=== PATIENT | female | born 1990 | race Caucasian/White ===

== ENCOUNTER 2016-03-20 20:32 | Emergency (ER) | payer OTHER ==
[~2016-03-20] VITALS: Ht 162.6 cm; Wt 67.4 kg
[~2016-03-20 20:32] MED LIST: CTF50 PO; HYDR-5688 PO; IBUP-1427 PO; PROP10TA7 PO
[2016-03-20 20:37] VITALS: TEMP 36.3; Ht 162.6 cm; Wt 67.4 kg
[2016-03-20] MEDS ORDERED: RIBO100T9 PO (20:56)
[2016-03-20] MEDS ORDERED: LMC25 PO (20:58)
--- NOTE | 2016-03-20 21:39 | EMERGENCY ROOM VISIT NOTE ---
History First contact with patient: 21:01 Chief Complaint: HEADACHE Stated Complaint: LIGHT HEADED, LEG PAIN, CHEST, HEADACHE X48 HRS History of Present Illness The patient is a 26 year old female who presents to the Emergency Room with complaints of feeling lightheaded, dizzy and weakness x 2 days, feeling like she may pass out as she feels off balance. Denies LOC or fall. Course unchanged over the 2 days. Has also had 3 episodes of chest pain/tightness lasting 10 minutes each yesterday. They occurred without exertion but have been associated with shortness of breath. Patient has had ongoing intermittent nausea since yesterday without vomiting. No associated triggers, exacerbating or alleviating symptoms. Patient also complaining of headache with piercing pain and a sensation of "warmth" felt at the top of her head. Patient denies aura, has had rhinorrhea for a few days but no watery eyes. She has minimal sensitivity to light. She has a history of migraines but claims this is different from the usual migraine because of the associated feeling of warmth. Currently has headache with ongoing weakness, but chest pain resolved. Also experiencing pain in left leg. Intermittent, started started yesterday prior to the chest pain. [place] initially on the lateral side of left knee and later felt a little higher up on lateral side of left thigh. Initial brief sharp followed by a dull cramp for 1.5 hours. Pain occurred while walking to different rooms and at work. 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 No long haul flights, or long commutes, never smoker, no OCP or HRT, No fever, rhinorrhea since yesterday, no abdominal, no issues with urination or bowels. Review of Systems See HPI for pertinent positives and negatives. A total of ten systems were reviewed and were otherwise negative. Past Medical/Surgical History Medical Problems: (1) section (2) DVT (deep venous thrombosis) (3) Migraine Family History Migraine Social History Smoking Status: Never Smoker Drug Use: none Marital Status: single Housing Status: lives with family Occupation Status: employed Current/Historical Medications Scheduled Lamotrigine (Lamotrigine), 25 MG PO HS Propranolol (Inderal), 20 MG PO BID Riboflavin (Vitamin B-2), 400 MG PO DAILY Scheduled PRN Diclofenac Potassium (Diclofenac Potassium), 10 MG PO Q8 PRN for Headache Allergies Coded Allergies: Acetaminophen (Verified Allergy, Unknown, Rash, SOB, 03/20/16) Oxycodone (Verified Allergy, Unknown, Rash, SOB, 03/20/16) Nortriptyline (Verified Adverse Reaction, Intermediate, rapid HR. SOB, 03/20) Physical Exam Vital Signs Date Time Temp Pulse Resp B/P Pulse Ox O2 Delivery O2 Flow Rate FiO2 03/21/16 00:45 63 20 102/64 98 Room Air 03/20/16 23:13 64 20 107/60 98 Room Air 03/20/16 20:37 36.3 72 16 123/74 99 Room Air Physical Exam GENERAL: alert, well appearing, thin, sitting in bed, no acute distress, non- toxic HEAD: Normocephalic, atraumatic. No sinus tenderness. EYES: PERRL, EOMI, normal conjunctiva OROPHARYNX: no exudate, no erythema, lips, buccal mucosa, and tongue normal and mucous membranes are moist NECK: supple, no nuchal rigidity, no adenopathy, non-tender LUNGS: Clear to auscultation. Normal chest wall mechanics, good air entry. No crepitations, crackles, or wheezes HEART: no murmurs, S1 normal and S2 normal CHEST: No reproducible tenderness. ABDOMEN: abdomen soft, non-tender, normo-active bowel sounds, no masses, no rebound or guarding. BACK: Back is symmetrical on inspection, no deformities, no midline tenderness, no CVA tenderness. SKIN: Warm, pink, dry. No erythema, rashes, or bruising. EXTREMITIES: Grossly normal. Moving all 4 limbs, strength 5/5. No pitting edema. Calves non tender. NEURO: Alert, Ox3. No focal deficits. Normal sensorium, cranial nerves II-XII grossly intact, normal speech. PSYCH: Mood and affect appropriate. Medical Decision & Procedures ER Provider Diagnostic Interpretation: CHEST ONE VIEW PORTABLE CLINICAL HISTORY: Atypical chest pain and shortness of breath COMPARISON STUDY: 02/06/2015 FINDINGS: The cardiac and mediastinal contours are normal. There is no evidence of focal pulmonary consolidation. There is no evidence of failure. No pleural effusions are visualized.[ IMPRESSION: No active disease in the chest. ULTRASOUND LEFT VENOUS DOPP LOWER EXT UNILAT CLINICAL HISTORY: Left leg pain COMPARISON STUDY: No previous studies for comparison. FINDINGS: Real-time and color flow Doppler imaging were performed. Flow was seen within the femoral, popliteal and calf veins with no intraluminal thrombus demonstrated. The saphenous vein is patent. Several mildly prominent left inguinal lymph nodes were visualized. On several lymph nodes, a well-defined fatty hilum was not visualized IMPRESSION: No evidence of left lower extremity DVT. CT CHEST No filling defect to suggest a PE No consolidation or effusion Laboratory Results 03/20/16 22:05 Red Blood Count 4.36, Mean Corpuscular Volume 86.9, Mean Corpuscular Hemoglobin 30.0, Mean Corpuscular Hemoglobin Concent 34.6, Mean Platelet Volume 10.6, Neutrophils (%) (Auto) 48.0, Lymphocytes (%) (Auto) 38.4, Monocytes (%) (Auto) 9.7, Eosinophils (%) (Auto) 3.4, Basophils (%) (Auto) 0.3, Neutrophils # (Auto) 5.37, Lymphocytes # (Auto) 4.29, Monocytes # (Auto) 1.08, Eosinophils # (Auto) 0.38, Basophils # (Auto) 0.03 03/20/16 22:05 Test 03/20/16 21:45 03/20/16 22:05 03/20/16 22:15 03/20/16 22:16 Influenza Type A Antigen Neg for Influ A (NEG) Influenza Type B Antigen Neg for Influ B (NEG) White Blood Count 11.17 K/uL (4.8-10.8) Red Blood Count 4.36 M/uL (4.2-5.4) Hemoglobin 13.1 g/dL (12.0-16.0) Hematocrit 37.9 % (37-47) Mean Corpuscular Volume 86.9 fL (80-100) Mean Corpuscular Hemoglobin 30.0 pg (25-34) Mean Corpuscular Hemoglobin Concent 34.6 g/dl (32-36) Platelet Count 302 K/uL (130-400) Mean Platelet Volume 10.6 fL (7.4-10.4) Neutrophils (%) (Auto) 48.0 % Lymphocytes (%) (Auto) 38.4 % Monocytes (%) (Auto) 9.7 % Eosinophils (%) (Auto) 3.4 % Basophils (%) (Auto) 0.3 % Neutrophils # (Auto) 5.37 K/uL (1.4-6.5) Lymphocytes # (Auto) 4.29 K/uL (1.2-3.4) Monocytes # (Auto) 1.08 K/uL (0.11-0.59) Eosinophils # (Auto) 0.38 K/uL (0-0.5) Basophils # (Auto) 0.03 K/uL (0-0.2) RDW Standard Deviation 42.0 fL (36.4-46.3) RDW Coefficient of Variation 13.1 % (11.5-14.5) Immature Granulocyte % (Auto) 0.2 % Immature Granulocyte # (Auto) 0.02 K/uL (0.00-0.02) Est Creatinine Clear Calc Drug Dose 104.5 ml/min Estimated GFR () 123.5 Estimated GFR (Non- 106.6 BUN/Creatinine Ratio 17.9 (10-20) Calcium Level 8.4 mg/dl (8.5-10.1) Troponin I < 0.015 ng/ml (0-0.045) Chemistry Specimen Hemolysis Bedside D-Dimer > 450 ng/mlFEU (0-450) Bedside Hemoglobin 13.9 g/dl (12.0-16.0) Bedside Hematocrit 41 % (37-47) Bedside Sodium 142 mEq/L (135-144) Bedside Potassium 3.6 mEq/L (3.3-5.0) Bedside Chloride 101 mEq/L (101-112) Bedside Total CO2 26 mEq/l (24-31) Anion Gap 20.0 mmol/L (16-25) Bedside Blood Urea Nitrogen 15 mg/dl (7-18) Bedside Creatinine 0.7 mg/dl (0.6-1.3) Bedside Glucose (other) 86 mg/dl (70-99) Bedside Ionized Calcium (Debra) 1.12 mmol/l (1.12-1.32) Test 03/20/16 23:20 Urine Color YELLOW Urine Appearance CLOUDY (CLEAR) Urine pH 7.5 (4.5-7.5) Urine Specific [place] 1.018 (1.000-1.030) Urine Protein NEG (NEG) Urine Glucose (UA) NEG (NEG) Urine Ketones NEG (NEG) Urine Occult Blood NEG (NEG) Urine Nitrite NEG (NEG) Urine Bilirubin NEG (NEG) Urine Urobilinogen NEG (NEG) Urine Leukocyte Esterase NEG (NEG) Urine WBC (Auto) 1-5 /hpf (0-5) Urine RBC (Auto) 5-10 /hpf (0-4) Urine Hyaline Casts (Auto) 1-5 /lpf (0-5) Urine Epithelial Cells (Auto) >30 /lpf (0-5) Urine Bacteria (Auto) 1+ (NEG) Urine Test NEG (NEG) Medications Administered Medications (Trade) Dose Ordered Sig/Gisela Route Start Time Stop Time Status Last Admin Dose Admin Sodium Chloride (Nss 1000ml) 1,000 ml @ 500 mls/hr Q2H IV 03/20/16 21:45 03/21/16 01:11 DC 03/20/16 23:17 500 MLS/HR Medical Decision Triage Nursing notes reviewed. Prior records/ancillary studies reviewed. The patient was evaluated in room C9. A complete history and physical exam was performed. The patient's history was concerning for leg pain and chest pain. Differential diagnoses includes but is not limited to acute coronary syndrome, myocardial infarction, pericarditis, pulmonary embolus, aortic dissection, pneumonia, pneumothorax, musculoskeletal, shingles, esophageal. Patient was given declined analgesia or anti-emetics for symptom relief. However , 1L of IV normal saline was given to improve hydration status. EKG showed sinus bradycardia but no signs of ischemic changes were seen Lab work was performed. CBC showed borderline leukocytosis, but no signs on anemia, BMP, and troponin were all within normal limits. D-dimer was elevated at 503. Nasopharyngeal swabs are negative for influenza CXR reported no active disease in the chest. U/S doppler of the left leg demonstrated no evidence of left lower extremity DVT. Patient was re-assessed and was feeling much better. She was updated of the results and told that in view of the elevated d-dimer and history of DVT, a CT chest for PE was recommended. The CT showed no filling defect to suggest a PE, no consolidation or effusion. Urine screen was negative for , and urinalysis showed contamination but no evidence of urinary infection. Likely diagnosis is non cardiac chest pain associated with anxiety. As such, patient advised for conservative management with Tylenol or Motrin for pain relief and increased oral intake to improve hydration status. She was told to return if worsening symptoms of chest pain, pleurisy, dyspnea, obvious leg swelling etc. Patient understands and agreeable with care plan. Patient discharged home well. Departure Information Dispostion Home / Self-Care Condition GOOD Referrals Valeriano Cr M.D. (PCP) Patient Instructions A Signature Page, My [facility] Additional Instructions Your were seen in the ED for chest pain and leg pain, your history was concerning for a repeat DVT with or without a pulmonary embolism. However, your labs are grossly within normal limits except for a borderline elevated d-dimer. Further diagnostic tests were pursued. Your EKG, chest xray, doppler of the legs were normal. Given your history a chest CT was performed which also did not show any pulmonary embolisms. This is all reassuring. At this time, you may continue your home medications for you migraines. We recommend follow up with your PCP in 1-2 weeks for re-assessment. You have been examined and treated today on an emergency basis only. This is not a substitute for, or an effort to provide, complete comprehensive medical care. It is impossible to recognize and treat all injuries or illnesses in a single emergency department visit. It is therefore important that you make a follow up with your physician for close monitoring. Return for worsening symptoms or if you develop fever, vomiting, or any other concerning symptoms such as leg swelling/tenderness, significant chest pain, shortness of breath, sweating etc.
[2016-03-20] MEDS ORDERED: SODIUM CHLORIDE 0.9% 1000ML 1,000 ML IV SCH (21:45)
--- NOTE | 2016-03-20 22:19 | EMERGENCY ROOM VISIT NOTE ---
History Report prepared by Norm: Nicole Sadler Under the Supervision of: Dr. Francisco Cooney M.D. First contact with patient: 21:01 Chief Complaint: HEADACHE Stated Complaint: LIGHT HEADED, LEG PAIN, CHEST, HEADACHE X48 HRS History of Present Illness The patient is a 26 year old female who presents to the Emergency Room with complaints of a worsening headache for the past 2 days. She states that she is feeling faint, lightheaded, and dizzy, as though she is going to pass out. She denies any LOC or falls. She states that her headache feels different from her typical migraine headache. The patient states that she has also had 3 episodes of chest pain each lasting for about 10 minutes. These have occurred without exertion but have been associated with shortness of breath and nausea. The patient has also had some left leg pain since yesterday. She has a history of DVT in her right calf for which she was on Coumadin. She is no longer on Coumadin. The patient denies fever, abdominal pain, urinary symptoms, recent travel, and any taking any OCP. She rates her current pain as a 4/10. Source of History: patient Onset: 2 days ago Position: head Symptom Intensity: 4/10 Quality: ache Timing: worsening Associated Symptoms: + SOB, + chest pain, + nausea, No abdominal pain, No fevers Review of Systems See HPI for pertinent positives & negatives. A total of 10 systems reviewed and were otherwise negative. Past Medical & Surgical Medical Problems: (1) section (2) DVT (deep venous thrombosis) (3) Migraine Family History Migraine Social History Smoking Status: Never Smoker Drug Use: none Marital Status: single Housing Status: lives with family Occupation Status: employed Current/Historical Medications Scheduled Lamotrigine (Lamotrigine), 25 MG PO HS Propranolol (Inderal), 20 MG PO BID Riboflavin (Vitamin B-2), 400 MG PO DAILY Scheduled PRN Diclofenac Potassium (Diclofenac Potassium), 10 MG PO Q8 PRN for Headache Allergies Coded Allergies: Acetaminophen (Verified Allergy, Unknown, Rash, SOB, 03/20/16) Oxycodone (Verified Allergy, Unknown, Rash, SOB, 03/20/16) Nortriptyline (Verified Adverse Reaction, Intermediate, rapid HR. SOB, 03/20) Physical Exam Vital Signs Date Time Temp Pulse Resp B/P Pulse Ox O2 Delivery O2 Flow Rate FiO2 03/20/16 23:13 64 20 107/60 98 Room Air 03/20/16 20:37 36.3 72 16 123/74 99 Room Air Physical Exam GENERAL: Patient is a healthy-appearing well-nourished 26 year old female. HEAD: Normocephalic atraumatic EYES: Ocular movements intact pupils equal and react to light OROPHARYNX mucous membranes are moist no exudates present no erythema or edema present NECK: Supple no nuchal rigidity CHEST: Good equal expansion LUNGS: Clear and equal to auscultation CARDIAC: Normal S1 and S2 ABDOMEN: Soft nontender no guarding BACK: No CVA tenderness EXTREMITIES: No pain upon palpation normal muscle strength in all groups no clubbing cyanosis or edema NEURO: Patient is following commands is answering questions appropriately. Alert and oriented x3 Cranial Nerves 2-12 grossly intact Medical Decision & Procedures ER Provider Diagnostic Interpretation: Radiology results as stated below per my review and radiologist interpretation: CTA CHEST: No filling defect to suggest a PE. No consolidation or effusion. Radiologist: Sumeet Smith M.D. ULTRASOUND LEFT VENOUS DOPP LOWER EXT UNILAT CLINICAL HISTORY: Left leg pain COMPARISON STUDY: No previous studies for comparison. FINDINGS: Real-time and color flow Doppler imaging were performed. Flow was seen within the femoral, popliteal and calf veins with no intraluminal thrombus demonstrated. The saphenous vein is patent. Several mildly prominent left inguinal lymph nodes were visualized. On several lymph nodes, a well-defined fatty hilum was not visualized IMPRESSION: No evidence of left lower extremity DVT. Electronically signed by: Gee Ribeiro M.D. 03/20/2016 10:54 PM Dictated Date/Time: 03/20/2016 10:53 PM CHEST ONE VIEW PORTABLE CLINICAL HISTORY: Atypical chest pain and shortness of breath COMPARISON STUDY: 02/06/2015 FINDINGS: The cardiac and mediastinal contours are normal. There is no evidence of focal pulmonary consolidation. There is no evidence of failure. No pleural effusions are visualized. IMPRESSION: No active disease in the chest. Electronically signed by: Gee Ribeiro M.D. 03/20/2016 10:30 PM Dictated Date/Time: 03/20/2016 10:30 PM Laboratory Results 03/20/16 22:05 Red Blood Count 4.36, Mean Corpuscular Volume 86.9, Mean Corpuscular Hemoglobin 30.0, Mean Corpuscular Hemoglobin Concent 34.6, Mean Platelet Volume 10.6, Neutrophils (%) (Auto) 48.0, Lymphocytes (%) (Auto) 38.4, Monocytes (%) (Auto) 9.7, Eosinophils (%) (Auto) 3.4, Basophils (%) (Auto) 0.3, Neutrophils # (Auto) 5.37, Lymphocytes # (Auto) 4.29, Monocytes # (Auto) 1.08, Eosinophils # (Auto) 0.38, Basophils # (Auto) 0.03 03/20/16 22:05 Test 03/20/16 21:45 03/20/16 22:05 03/20/16 22:15 03/20/16 22:16 Influenza Type A Antigen Neg for Influ A (NEG) Influenza Type B Antigen Neg for Influ B (NEG) White Blood Count 11.17 K/uL (4.8-10.8) Red Blood Count 4.36 M/uL (4.2-5.4) Hemoglobin 13.1 g/dL (12.0-16.0) Hematocrit 37.9 % (37-47) Mean Corpuscular Volume 86.9 fL (80-100) Mean Corpuscular Hemoglobin 30.0 pg (25-34) Mean Corpuscular Hemoglobin Concent 34.6 g/dl (32-36) Platelet Count 302 K/uL (130-400) Mean Platelet Volume 10.6 fL (7.4-10.4) Neutrophils (%) (Auto) 48.0 % Lymphocytes (%) (Auto) 38.4 % Monocytes (%) (Auto) 9.7 % Eosinophils (%) (Auto) 3.4 % Basophils (%) (Auto) 0.3 % Neutrophils # (Auto) 5.37 K/uL (1.4-6.5) Lymphocytes # (Auto) 4.29 K/uL (1.2-3.4) Monocytes # (Auto) 1.08 K/uL (0.11-0.59) Eosinophils # (Auto) 0.38 K/uL (0-0.5) Basophils # (Auto) 0.03 K/uL (0-0.2) RDW Standard Deviation 42.0 fL (36.4-46.3) RDW Coefficient of Variation 13.1 % (11.5-14.5) Immature Granulocyte % (Auto) 0.2 % Immature Granulocyte # (Auto) 0.02 K/uL (0.00-0.02) Est Creatinine Clear Calc Drug Dose 104.5 ml/min Estimated GFR () 123.5 Estimated GFR (Non- 106.6 BUN/Creatinine Ratio 17.9 (10-20) Calcium Level 8.4 mg/dl (8.5-10.1) Troponin I < 0.015 ng/ml (0-0.045) Chemistry Specimen Hemolysis Bedside D-Dimer > 450 ng/mlFEU (0-450) Bedside Hemoglobin 13.9 g/dl (12.0-16.0) Bedside Hematocrit 41 % (37-47) Bedside Sodium 142 mEq/L (135-144) Bedside Potassium 3.6 mEq/L (3.3-5.0) Bedside Chloride 101 mEq/L (101-112) Bedside Total CO2 26 mEq/l (24-31) Anion Gap 20.0 mmol/L (16-25) Bedside Blood Urea Nitrogen 15 mg/dl (7-18) Bedside Creatinine 0.7 mg/dl (0.6-1.3) Bedside Glucose (other) 86 mg/dl (70-99) Bedside Ionized Calcium (Debra) 1.12 mmol/l (1.12-1.32) Test 03/20/16 23:20 Urine Color YELLOW Urine Appearance CLOUDY (CLEAR) Urine pH 7.5 (4.5-7.5) Urine Specific [place] 1.018 (1.000-1.030) Urine Protein NEG (NEG) Urine Glucose (UA) NEG (NEG) Urine Ketones NEG (NEG) Urine Occult Blood NEG (NEG) Urine Nitrite NEG (NEG) Urine Bilirubin NEG (NEG) Urine Urobilinogen NEG (NEG) Urine Leukocyte Esterase NEG (NEG) Urine WBC (Auto) 1-5 /hpf (0-5) Urine RBC (Auto) 5-10 /hpf (0-4) Urine Hyaline Casts (Auto) 1-5 /lpf (0-5) Urine Epithelial Cells (Auto) >30 /lpf (0-5) Urine Bacteria (Auto) 1+ (NEG) Urine Test NEG (NEG) Labs reviewed by ED physician. Medications Administered Medications (Trade) Dose Ordered Sig/Gisela Route Start Time Stop Time Status Last Admin Dose Admin Sodium Chloride (Nss 1000ml) 1,000 ml @ 500 mls/hr Q2H IV 03/20/16 21:45 04/19/16 21:44 03/20/16 23:17 500 MLS/HR ECG Indication: chest pain Rate (beats per minute): 53 Rhythm: sinus bradycardia Findings: no acute ischemic change, no ectopy ED Course 2100: Past medical records reviewed. The patient was evaluated in room C9. A complete history and physical examination was performed. 2144: NSS 1000 ml @ 500 mls/hr IV 2199: I reassessed the patient at this time. 2338: I reassessed the patient at this time. She is feeling better and resting comfortably. I discussed the results and treatment plan with the patient. I answered all pertaining questions that she had. She expressed understanding and verbalized agreement. The patient will be discharged home. Medical Decision Differential diagnosis: Etiologies such as infections, reactive airway disease, pneumonia, pneumothorax , COPD, CHF, cardiac ischemia, pulmonary embolism, musculoskeletal, gastrointestinal, as well as others were entertained. Resident Physician Supervision Note: I was present with Dr. Haddad during the history and exam. I discussed the case with the resident and agree with the findings and plan as documented in the note. Documented By: Francisco Cooney This is a 26 rolled female who presents emergency department with multiple complaints including chest pain shortness of breath leg pain. The patient is crying upon arrival I feel a lot of this is anxiety. She has a normal CAT scan of the chest. She does have a slight elevation in her d-dimer. She does not have any evidence of a blood clot in her lower leg. I feel she is well enough to be discharged home for follow-up with her primary care physician. Patient was in agreement with the treatment plan. Impression Primary Impression: Non-cardiac chest pain Additional Impressions: History of DVT (deep vein thrombosis), Leg pain, lateral Scribe Attestation The scribe's documentation has been prepared under my direction and personally reviewed by me in its entirety. I confirm that the note above accurately reflects all work, treatment, procedures, and medical decision making performed by me. Departure Information Dispostion Home / Self-Care Referrals Valeriano Cr M.D. (PCP) Forms HOME CARE DOCUMENTATION FORM, IMPORTANT VISIT INFORMATION Patient Instructions A Signature Page, My [facility] Additional Instructions Your were seen in the ED for chest pain and leg pain, your history was concerning for a repeat DVT with or without a pulmonary embolism. However, your labs are grossly within normal limits except for a borderline elevated d-dimer. Further diagnostic tests were pursued. Your EKG, chest xray, doppler of the legs were normal. Given your history a chest CT was performed which also did not show any pulmonary elmbolisms. This is all reassuring. At this time, you may continue your home meds for you migraines. We recommend follow up with your PCP in 1-2 weeks for re-assessment. You have been examined and treated today on an emergency basis only. This is not a substitute for, or an effort to provide, complete comprehensive medical care. It is impossible to recognize and treat all injuries or illnesses in a single emergency department visit. It is therefore important that you make a follow up with your physician for close monitoring. Return for worsening symptoms or if you develop fever, vomiting, or any other concerning symptoms such as leg swelling/tenderness, significant chest pain, shortness of breath, sweating etc.
[2016-03-20 22:22] LABS: BASO % 0.3 %; BASO ABS # 0.03 K/uL (0-0.2); COMPLETE YES; EOS % 3.4 %; HEMATOCRIT 37.9 % (37-47); IG% 0.2 %; LYMPH % 38.4 %; LYMPH ABS # 4.29 K/uL (1.2-3.4); MEAN CELL VOLUME 86.9 fL (80-100); MEAN CORPUSCULAR HGB CONC 34.6 g/dl (32-36); MEAN PLATELET VOLUME 10.6 fL (7.4-10.4); MONO % 9.7 %; PLATELET COUNT 302 K/uL (130-400); RED BLOOD COUNT 4.36 M/uL (4.2-5.4); WHITE BLOOD COUNT 11.17 K/uL (4.8-10.8)
[2016-03-20 22:27] LABS: ISTAT CREATININE 0.7 mg/dl (0.6-1.3); ISTAT HEMOGLOBIN 13.9 g/dl (12.0-16.0); ISTAT IONIZED CALCIUM 1.12 mmol/l (1.12-1.32)
--- NOTE | 2016-03-20 22:32 | DIAGNOSTIC IMAGING REPORT ---
CHEST ONE VIEW PORTABLE CLINICAL HISTORY: Atypical chest pain and shortness of breath COMPARISON STUDY: 02/06/2015 FINDINGS: The cardiac and mediastinal contours are normal. There is no evidence of focal pulmonary consolidation. There is no evidence of failure. No pleural effusions are visualized.[ IMPRESSION: No active disease in the chest. Electronically signed by: Gee Ribeiro M.D. 03/20/2016 10:30 PM Dictated Date/Time: 03/20/2016 10:30 PM
[2016-03-20] MEDS ORDERED: OPTIRAY 320 IV PRN (22:45)
[2016-03-20 22:49] LABS: BLOOD UREA NITROGEN 14 mg/dl (7-18); BUN/CREATININE RATIO 17.9 (10-20); CALCIUM 8.4 mg/dl (8.5-10.1); CARBON DIOXIDE 26 mmol/L (21-32); CHLORIDE 105 mmol/L (98-107); CREATININE 0.77 mg/dl (0.60-1.20); GLUCOSE 81 mg/dl (70-99); POTASSIUM 3.6 mmol/L (3.5-5.1); SODIUM 142 mmol/L (136-145)
--- NOTE | 2016-03-20 22:56 | DIAGNOSTIC IMAGING REPORT ---
ULTRASOUND LEFT VENOUS DOPP LOWER EXT UNILAT CLINICAL HISTORY: Left leg pain COMPARISON STUDY: No previous studies for comparison. FINDINGS: Real-time and color flow Doppler imaging were performed. Flow was seen within the femoral, popliteal and calf veins with no intraluminal thrombus demonstrated. The saphenous vein is patent. Several mildly prominent left inguinal lymph nodes were visualized. On several lymph nodes, a well-defined fatty hilum was not visualized IMPRESSION: No evidence of left lower extremity DVT. Electronically signed by: Gee Ribeiro M.D. 03/20/2016 10:54 PM Dictated Date/Time: 03/20/2016 10:53 PM
[2016-03-20 23:33] LABS: URINE APPEARANCE CLOUDY (CLEAR); URINE BILIRUBIN NEG (NEG); URINE COLOR YELLOW; URINE EPITHELIAL CELL AUTO >30 /lpf (0-5); URINE NITRITE NEG (NEG); URINE PH 7.5 (4.5-7.5); URINE SPECIFIC GRAVITY 1.018 (1.000-1.030); UROBILINOGEN NEG (NEG)
[2016-03-20 23:49] LABS: MANUAL MICROSCOPIC REQUIRED? NO; REVIEW REQ? NO; ZZUR CULT IF INDIC CLEAN CATCH YES
[2016-03-21 00:45] VITALS: BP 102/64; PULSE 63; O2SAT 98
--- NOTE | 2016-03-21 08:26 | DIAGNOSTIC IMAGING REPORT ---
CHEST CTA for PULMONARY ARTERIES CT DOSE: 190.32 mGy.cm HISTORY: Shortness of breath. Elevated d-dimer. TECHNIQUE: Multiaxial CT images of the chest were performed following the intravenous administration of contrast to evaluate the pulmonary arteries. Maximal intensity projection images were also obtained. COMPARISON STUDY: Chest CTA 02/06/2015. FINDINGS: There is a normal caliber thoracic aorta with no evidence for dissection. There is no evidence for pulmonary embolus. No pleural effusions. No pneumothorax. The liver and spleen are unremarkable. No mediastinal or hilar lymphadenopathy. The central airways are patent. The lungs are clear. IMPRESSION: No evidence for pulmonary embolus. Electronically signed by: [place] M.D. 03/21/2016 8:24 AM Dictated Date/Time: 03/21/2016 8:20 AM
== END 2016-03-21 00:50 | disposition home or self-care (01) ==
LOC: C.EDB 20:34 → C.EDC 03-21 00:50
DX: R07.89 Other chest pain (principal); M79.604 Pain in right leg; R42 Dizziness and giddiness; R00.1 Bradycardia, unspecified; R53.1 Weakness; R06.02 Shortness of breath; R11.0 Nausea; R51 Headache; Z79.899 Other long term (current) drug therapy; Z88.5 Allergy status to narcotic agent; Z88.6 Allergy status to analgesic agent; Z88.8 Allergy status to other drugs, medicaments and biological substances; Z86.718 Personal history of other venous thrombosis and embolism

== ENCOUNTER → 2016-10-29 | Outpatient (CLI) | payer OTHER ==
[~2016-10-29] MED LIST changes: -HYDR-5688 PO; -IBUP-1427 PO; +LMC25 PO; +RIBO100T9 PO
[2016-10-29 09:07] LABS: BASO % 0.2 %; BASO ABS # 0.02 K/uL (0-0.2); COMPLETE YES; EOS % 3.3 %; HEMATOCRIT 41.4 % (37-47); IG% 0.2 %; LYMPH % 29.8 %; MEAN CORPUSCULAR HEMOGLOBIN 28.7 pg (25-34); MEAN CORPUSCULAR HGB CONC 31.9 g/dl (32-36); MEAN PLATELET VOLUME 10.4 fL (7.4-10.4); NEUT % 59.5 %; PLATELET COUNT 349 K/uL (130-400); WHITE BLOOD COUNT 10.39 K/uL (4.8-10.8)
[2016-10-29 09:15] LABS: ALT/SGPT 35 U/L (12-78); BLOOD UREA NITROGEN 12 mg/dl (7-18); BUN/CREATININE RATIO 18.9 (10-20); CALCIUM 8.8 mg/dl (8.5-10.1); CARBON DIOXIDE 31 mmol/L (21-32); CHLORIDE 105 mmol/L (98-107); CHOLESTEROL 163 mg/dl (0-200); CREATININE 0.65 mg/dl (0.60-1.20); GLUCOSE 82 mg/dl (70-99); POTASSIUM 4.4 mmol/L (3.5-5.1); SODIUM 139 mmol/L (136-145)
[2016-10-29 09:18] LABS: ALKALINE PHOSPHATASE 67 U/L (45-117); AST/SGOT 15 U/L (15-37); CHOLESTEROL/HDL RATIO 3.6; HDL CHOLESTEROL 45 mg/dl; LDL CHOLESTEROL CALCULATED 97 mg/dl; TRIGLYCERIDES 103 mg/dl (0-150); VERY LOW DENSITY LIPOPROT CALC 21 mg/dl
== END | disposition home or self-care (01) ==
LOC: C.LAB 08:56
PROVIDERS: ATTEND Family Medicine
DX: Z13.220 Encounter for screening for lipoid disorders (principal); R10.84 Generalized abdominal pain